=== PATIENT | female | born 1985 | race Two or more races ===

== ENCOUNTER 2018-12-02 16:00 | Emergency (ER) | payer SELFPAY ==
[~2018-12-02] VITALS: Ht 165.1 cm; Wt 77.6 kg
[2018-12-02 17:33] LABS: Basophils # (auto) 0 uL; Basophils % (auto) 0.3 % (0.0-2.0); Eosinophils # (auto) 0.1 uL; Hemoglobin 12.9 g/dL (12.2-16.2); Mean Corpuscular Hemoglobin 26.7 pg (28.0-32.0); Mean Corpuscular Hgb Conc. 32.5 g/dL (32.0-36.0); Monocytes # (auto) 0.6 uL; Monocytes % (auto) 10.2 % (0.0-12.0); Neutrophils # (auto) 3.1 uL; Nucleated Red Blood Cells % 0.1 %; White Blood Cell 6.2 10^3/uL (4.4-10.8)
[2018-12-02 17:36] LABS: Eosinophils % (auto) 1.9 % (0.0-7.0); Hematocrit 39.8 % (36.0-46.0); Lymphocytes # (auto) 2.4 uL; Lymphocytes % (auto) 38.3 % (10.0-50.0); Mean Corpuscular Volume 82.3 fL (80.0-100.0); Neutrophils % (auto) 49.3 % (37.0-80.0); Platelet Count (auto) 207 10^3/uL (140-450); Red Blood Cells 4.84 10^6/uL (4.0-5.20); Red Cell Distribution Width 14.3 % (11.8-14.3)
[2018-12-02 20:57] VITALS: BP 126/80
== END 2018-12-02 21:00 | disposition home or self-care (01) ==
LOC: ER 16:00
DX: O43.0 Placental transfusion syndromes (principal); Z3A.09 9 weeks gestation of pregnancy
CPT/HCPCS: 36415; 76801; 76817; 84702; 85025